=== PATIENT | female | born 1975 | race Caucasian/White ===

== ENCOUNTER 2016-12-02 04:42 | Emergency (ER) | payer MEDICAID ==
[~2016-12-02] VITALS: Ht 157.5 cm; Wt 80.0 kg
[~2016-12-02 04:42] MED LIST: TRAM-40 PO
[2016-12-02 04:43] VITALS: Ht 157.5 cm; Wt 80.0 kg
[2016-12-02] MEDS ORDERED: IBUP-1542 PO (05:14)
[2016-12-02] MEDS ORDERED: NPH10OT RIGHT EAR (05:14)
--- NOTE | 2016-12-02 05:18 | ERD ---
ER Documentation Chief Complaint Date/Time DATE: 12/02/16 TIME: 05:16 Chief Complaint right ear pain with yellowish discharge x1 week. HPI 41-year-old female presents here in emergency department for complaints of right ear pain for one week. Patient describes the pain as sharp pain,6/10 scale , and is accompanied with some yellowish ear discharge. Patient was swimming prior to that days. Patient doesn't take any medications help with symptoms. Patient denies any other symptoms. ROS All systems reviewed and are negative except as per history of present illness. Medications Home Meds Active Scripts Ibuprofen* (Motrin*) 600 Mg Tab, 600 MG PO Q6H Y for PAIN AND OR ELEVATED TEMP, #30 TAB Prov:FRANKLIN AYON NP 12/02/16 Neomycin/Polymyxin/Hydrocort* (Cortisporin* Otic) 10 Ml Susp, 4 DROP RIGHT EAR QID for 7 Days, EA Prov:FRANKLIN AYON NP 12/02/16 Tramadol Hcl* (Ultram*) 50 Mg Tablet, 50 MG PO Q6H Y for PAIN, #15 TAB Prov:POLLY MENDOZA PA-C 12/16/15 Allergies Allergies: Coded Allergies: No Known Allergy (Unverified , 01/04/13) PMhx/Soc Medical and Surgical Hx: pt denies Medical Hx History of Surgery: Yes (LIPOSUCTION(ABD)) Anesthesia Reaction: No Hx Neurological Disorder: No Hx Respiratory Disorders: No Hx Cardiac Disorders: No Hx Psychiatric Problems: No Hx Miscellaneous Medical Probl: No Hx Alcohol Use: Yes (SOCIAL ) Hx Substance Use: No Hx Tobacco Use: No Smoking Status: Never smoker FmHx Family History: No coronary disease, No diabetes, No other Physical Exam Vitals Vital Signs Date Time Temp Pulse Resp B/P Pulse Ox O2 Delivery O2 Flow Rate FiO2 12/02/16 04:43 97.8 63 16 122/71 98 Physical Exam GENERAL: The patient is well developed and appropriate for usual state of health, in no apparent distress. HEENT: Atraumatic. Ears: Normal tympanic membrane, no erythema or bulging. Right ear canal noted to be erythematous and swollen with yellowish discharge. No left ear canal swelling. No left ear discharge. Nose: normal nasal turbinates , no erythema or swelling. Normal nasal discharge. Throat: oropharynx clear. No tonsillar swelling or tonsillar exudates. No lymphadenopathy. CHEST: Clear to auscultation bilaterally. There are no rales, wheezes or rhonchi. HEART: Regular rate and rhythm. No murmurs, clicks, rubs or gallops. No S3 or S4. ABDOMEN: Soft, nontender and nondistended. Good bowel sounds. No rebound or guarding. No gross peritonitis. No gross organomegaly or masses. No Cristobal sign or McBurney point tenderness. BACK: No midline or flank tenderness. EXTREMITIES: Equal pulses bilaterally. There is no peripheral clubbing, cyanosis or edema. No focal swelling or erythema. Full range of motion. Grossly neurovascularly intact. NEURO: Alert and oriented. Cranial nerves 2-12 intact. Motor strength in all 4 extremities with 5/5 strength. Sensation grossly intact. Normal speech and gait. SKIN: There is no apparent rash or petechia. The skin is warm and dry. HEMATOLOGIC AND LYMPHATIC: There is no evidence of excessive bruising or lymphedema. No gross cervical, axillary, or inguinal lymphadenopathy. Procedures/MDM Medical decision making: Patient symptoms is likely consistent with otitis externa, no symptoms of otitis media or mastoiditis. No foreign body. No TM perforation. No symptoms of any malignant otitis. No symptoms of any cellulitis. Prescription was given for Corticosporin otic drops, ibuprofen, is advised to follow-up with primary care doctor in 2-3 days for reevaluation of her symptoms. Patient was advised to return to emergency department Disposition: Home. Stable. Departure Diagnosis: Primary Impression: Otitis externa Otitis externa type: unspecified type Laterality: right Chronicity: acute Qualified Code: H60.501 - Acute otitis externa of right ear, unspecified type Condition: Stable Patient Instructions: External Ear Infection (Adult) FRANKLIN AYON NP Dec 02, 2016 05:18
== END 2016-12-02 05:30 | disposition home or self-care (01) ==
LOC: FTE 04:42
DX: H60.501 Unspecified acute noninfective otitis externa, right ear (principal)
CPT/HCPCS: 99283